=== PATIENT | female | born 1975 | race Caucasian/White ===

== ENCOUNTER 2022-03-23 16:37 | Emergency (ER) | payer OTHER ==
[~2022-03-23] VITALS: Ht 167.6 cm; Wt 89.8 kg
[2022-03-23] MEDS ORDERED: ONDANSETRON HCL4 MG PO (16:58)
[2022-03-23] MEDS ORDERED: TRANSDERM-SCOP1 EACH TD (16:58)
[2022-03-23] MEDS ORDERED: SYNTHROID137 MCG PO (16:59)
[2022-03-23] MEDS ORDERED: FLUOXETINE HCL20 MG PO (16:59)
--- NOTE | 2022-03-23 20:45 | EKG ---
[facility] [address] [facility] [place] [address] Signed Sinus bradycardia Low voltage QRS Borderline ECG No previous ECGs available Confirmed by Yehuda Singh MD () on 03/23/2022 8:45:31 PM Electronically Signed By: YEHUDA SINGH MD 03/23/222044 PATIENT NAME: BARBICAYDEN Electrocardiogram DATE OF : 73 PHYSICIAN: YEHUDA SINGH MD REPORT #: [id number] REPORT IS CONFIDENTIAL AND NOT TO BE RELEASED WITHOUT AUTHORIZATION
== END 2022-03-23 18:25 | disposition home or self-care (01) ==
LOC: ED 16:37
DX: R42 Dizziness and giddiness (principal); Z79.899 Other long term (current) drug therapy; Z20.822 Contact with and (suspected) exposure to COVID-19
CPT/HCPCS: 36415; 71045; 80053; 83735; 84484; 85025; 87502; 93005; 93010; 99285-25; A9270; C9803; U0003

== ENCOUNTER 2024-08-24 14:23 | Emergency (ER) | payer BC ==
[~2024-08-24] VITALS: Ht 167.6 cm; Wt 79.5 kg
[~2024-08-24 14:23] MED LIST: FLUOXETINE HCL20 MG PO; ONDANSETRON HCL4 MG PO; SYNTHROID137 MCG PO; TRANSDERM-SCOP1 EACH TD
[2024-08-24] MEDS ORDERED: ondansetron HCL 4 MG/2 ML VIAL IV ONE (16:00)
[2024-08-24] MEDS ORDERED: PANTOPRAZOLE SO40 MG PO (16:01)
[2024-08-24] MEDS ORDERED: MONTELUKAST SOD10 MG PO (16:01)
[2024-08-24] MEDS ORDERED: BUDESONIDE0.5 MG/2 M INH (16:02)
[2024-08-24] MEDS ORDERED: MINCORA TABLET1 EACH PO (16:02)
[2024-08-24] MEDS ORDERED: CLARITIN5 MG PO (16:02)
[2024-08-24] MEDS ORDERED: SODIUM CHLORIDE 0.9% 1,000 ML IV PRN (16:15)
[2024-08-24 16:16] LABS: BASOPHILS 0.4 % (0.1-1.2); EOSINOPHILS 0.7 % (0.7-5.8); HEMATOCRIT 42.8 % (34.1-44.9); HEMOGLOBIN 14.5 g/dL (11.2-15.7); LYMPHOCYTES 14.4 % (19.3-51.7); MCH 29.4 PG (25.6-32.2); MCHC 33.9 g/dL (32.2-35.5); MCV 86.8 fL (79.4-94.8); MONOCYTES 4.5 % (4.7-12.5); NEUTROPHILS 79.6 % (34.0-71.1); PLATELET COUNT 279 K/uL (182-369); RBC 4.93 M/uL (3.93-5.22)
[2024-08-24 16:34] LABS: ALBUMIN 4.7 g/dL (3.4-5.0); ALBUMIN/GLOBULIN RATIO 1.21 (1.1-2.4); ANION GAP 20.2 (7-21); BILIRUBIN, TOTAL 1.1 mg/dL (0.2-1.0); CALCIUM 10.2 mg/dL (8.5-10.1); POTASSIUM 3.2 mmol/L (3.5-5.1); PROTEIN, TOTAL 8.6 g/dL (6.4-8.2)
[2024-08-24] MEDS ORDERED: KETOROLAC TROMETHAMINE 15 MG/ML VIAL IV ONE (17:00)
[2024-08-24 17:14] LABS: BILIRUBIN, URINE NEGATIVE (negative); BLOOD/HGB, URINE NEGATIVE (Negative); KETONE, URINE >=80 (Negative); LEUK ESTERASE, URINE TRACE (negative); NITRITE, URINE NEGATIVE (negative); PH, URINE 8.5 (5-7)
[2024-08-24 17:19] LABS: BACTERIA, URINE RARE /hpf (negative); CASTS, URINE NONE SEEN \\lpf; COLLECTION TYPE, URINE CLEAN CATCH; CRYSTALS, URINE NONE SEEN (0-1+); EPITHELIAL CELLS, URINE SQUAMOUS 1+ /lpf (0-1+); RED BLOOD CELLS, URINE 0-1 /hpf (0-5); REFLEX CULTURE, URINE No (No)
[2024-08-24] MEDS ORDERED: SOD PHOSPHATE/SOD BIPHOSPHATE 132 ML BTL PR ONE (18:15)
[2024-08-24 19:00] VITALS: BP 109/63
== END 2024-08-24 19:12 | disposition home or self-care (01) ==
LOC: ED 14:23
PROVIDERS: Emergency Medicine
DX: K56.41 Fecal impaction (principal); Z88.1 Allergy status to other antibiotic agents; Z88.8 Allergy status to other drugs, medicaments and biological substances; Z79.899 Other long term (current) drug therapy; Z79.890 Hormone replacement therapy; Z90.49 Acquired absence of other specified parts of digestive tract
CPT/HCPCS: 36415; 74177; 80053; 81001; 83690; 84703; 85025; 96361; 96375; 99284-25; J1885; J2405; J7030; Q9967